=== PATIENT | female | born 1975 | race Two or more races ===

== ENCOUNTER 2019-02-22 05:36 | Day surgery (SDC) | payer OTHER ==
--- NOTE | 2019-02-18 19:43 | PREOPHP ---
DATE OF ADMISSION: 02/22/2019 The patient is having a surgical procedure on 02/22/2018. HISTORY OF PRESENT ILLNESS: This is a 43-year-old female, 2, para 1. The patient was referr ed to me by her clinic due to bilateral ovarian masses that apparently are bilateral ovarian endometr iomas. She also has a history of menometrorrhagia, intractable pelvic pain, anemia, and a fibroid ut erus. The patient had an ultrasound in the clinic where she comes from and it revealed that she has large bilateral complex ovarian masses. The patient has a history of having a pelviscopy 36 years ag o where she was diagnosed with endometriosis, and she has also a history of a D and C. The patient c omplains of having heavy periods, with history of menometrorrhagia for many months right now. She aguilar d been placed on control pills that did not work. The patient states her ovarian cysts are cely wing by the ultrasound results, and she is also with dysmenorrhea, dyspareunia and on no treatment at this moment since the pills do not agree with her. REVIEW OF SYSTEMS: The patient had no cardiovascular problems, no lung problems, no GI problems, no endocrine problems. ALLERGIES: SHE HAS NO ALLERGIES. SOCIAL HISTORY: No smoking and no drinking. No history of drugs. FAMILY HISTORY: Unremarkable. MEDICATIONS: At this moment, she is not taking any medication. Ultrasound had shown multiple fibroids and endometriomas. THE PATIENT IS NOT ALLERGIC TO ANY MEDICATION. PHYSICAL EXAMINATION: VITAL SIGNS: Stable. The patient weighs 124. She is 5 feet 3 inches, and the patient is afebrile. Pulse is 80, respirations 16, blood pressure 120/80. HEAD AND NECK: Normal. BREASTS: Soft, nontender. No masses. CHEST: Clear. HEART: Normal sinus rhythm. LUNGS: Clear. ABDOMEN: Soft, nontender. No masses. GENITALIA: With normal color and texture of the vagina. PELVIC: Cervix is healthy. Uterus felt to have large fibroids, and both adnexa are full. RECTAL: Negative. EXTREMITIES: Normal. DIAGNOSES: 1. Intractable menometrorrhagia. 2. Intractable pelvic pain. 3. Bilateral ovarian complex masses, possible endometriomas. 4. Fibroid uterus. 5. Anemia. PLAN: She is undergoing a pelviscopic bilateral ovarian cystectomy and a D and C. She has been advi sed of the possible risks and possible complications of the procedure with her alternatives and optio ns. Written information was provided. She had no more questions and agreed to go ahead with the pro cedure with full understanding and no more questions. Dictated By: MAKENNA PATTERSON/NTS Conf#: [id number] DID#: [id number]
[2019-02-22] VITALS (15 sets, daily range): BP systolic 113–152; BP diastolic 68–98; PULSE 66–88; RESP 16–25; Ht 160 cm; Wt 53.9 kg
[~2019-02-22] VITALS: Ht 160 cm; Wt 53.9 kg
[2019-02-22] MEDS ORDERED: CEFAZOLIN 2 GM/50 ML (PMX) 50 ML IVPB ONE (06:00)
[2019-02-22] MEDS ORDERED: NORG1TAB65 PO (06:50)
[2019-02-22] MEDS ORDERED: DESFLURANE 15 MIN ONE (07:00)
--- NOTE | 2019-02-22 07:21 | PREAC ---
Date/Time of Note Date/Time of Note DATE: 02/22/19 TIME: 07:18 Anesthesia Eval and Record Evaluation Time Pre-Procedure Interview DATE: 02/22/19 TIME: 07:18 Age 43 Sex female NPO: 8 hrs Preoperative diagnosis ovarian cysts b/l Planned procedure b/l ovarian cystectomy Past Medical History Past Medical History: Includes Heme: Anemia Surgery & Anesthesia Issues No known issue Meds Anticoagulation: No Beta Puja within 24 hr: No Reason Beta Puja not given: Pt. not on B-Puja Reported Medications Norgestimate-Ethinyl Estradiol (Norgestimate-Ethinyl Estradiol) 0.035-0.18 Mg Tablet, 1 TAB PO DAILY, TAB 02/22/19 Meds reviewed: Yes Allergies Coded Allergies: No Known Allergy (Unverified , 02/22/19) Allergies Reviewed: Yes Labs/Studies Labs Reviewed: Reviewed by anesthesiologist test: Negative Pre-procedure Exam Last vitals Vital Signs Date Temp Pulse Resp B/P (MAP) Pulse Ox O2 O2 Flow FiO2 Time Delivery Rate 02/22/19 98.8 88 18 152/75 98 Room Air 06:45 (100) Airway: Adequate mouth opening, Adequate thyromental dist Mallampati: Mallampati II Teeth: Normal Lung: Normal Heart: Normal ASA Physical Status ASA physical status: 2 Emergency: None Planned Anesthetic General/MAC: ETT Nerve block: TAP (bilateral) Pre-operative Attestations Prior to commencing anesthesia and surgery, the patient was re-evaluated, there was verification of: *The patient's identity *The results of appropriate recent lab work and preoperative vital signs *The above evaluation not changing prior to induction *Anesthetic plan, risk benefits, alternative and complications discussed with patient/family; questions answered; patient/family understands, accepts and wishes to proceed. JODI JEROME Feb 22, 2019 07:21
[2019-02-22] MEDS ORDERED: BUPIVACAINE 0.5%/EPI (SDV) 30 ML INJ ONE (07:23)
[2019-02-22] MEDS ORDERED: BUPIVACAINE 0.5%/EPI (SDV) 10 ML INJ ONE (07:23)
[2019-02-22] MEDS ORDERED: FENTAnyl 50 MCG/ML VIAL IV PRN ×3 (07:30)
[2019-02-22] MEDS ORDERED: LACTATED RINGER'S 1,000 ML IV SCH (07:30)
[2019-02-22] MEDS ORDERED: MEPERIDINE 25 MG INJ IV PRN (07:30)
[2019-02-22] MEDS ORDERED: HYDROmorphONE 1 MG/5 ML IV SYRINGE IV PRN ×3 (07:30)
[2019-02-22] MEDS ORDERED: DIPHENHYDRAMINE 50 MG INJ IV PRN (07:30)
[2019-02-22] MEDS ORDERED: ALBUTEROL 0.083% (NEB) 2.5 MG/3 ML AMP HHN PRN (07:30)
[2019-02-22] MEDS ORDERED: METOCLOPRAMIDE 10 MG INJ IV PRN (07:30)
[2019-02-22] MEDS ORDERED: ONDANSETRON 4 MG INJ IV PRN (07:30)
[2019-02-22] MEDS ORDERED: ROPIVACAINE 0.5 % 30 ML VIAL ONE (07:33)
[2019-02-22] MEDS ORDERED: FENTAnyl 50 MCG/ML VIAL ONE (07:33)
--- NOTE | 2019-02-22 07:37 | HPN ---
Date/Time of Note Date/Time of Note DATE: 02/22/19 TIME: 07:37 Interval H&P Admission Note Pt. seen H&P reviewed: No system changes MAKENNA CAZARES MD Feb 22, 2019 07:37
[2019-02-22] MEDS ORDERED: LIDOCAINE 100 MG SYRINGE ONE (08:57)
[2019-02-22] MEDS ORDERED: PROPOFOL 20 ML ONE (08:57)
[2019-02-22] MEDS ORDERED: ROCURONIUM 50 MG INJ ONE (08:57)
[2019-02-22] MEDS ORDERED: SUGAMMADEX SODIUM 200 MG/2 ML VIAL IV ONE (08:57)
[2019-02-22] MEDS ORDERED: SUCCINYLCHOLINE CHLORIDE 100 MG/5 ML SYG IV ONE (08:57)
[2019-02-22] MEDS ORDERED: CEFAZOLIN 1 GM INJ ONE (08:57)
--- NOTE | 2019-02-22 09:07 | PD.PPDC ---
SENIOR SHAREPOINT ARCHITECT Discharge Instruction Condition [id number] Patient Condition: [id number] Good Diet [id number] Diet: Respt4y Resume Regular Diet Activity/Restrictions [id number] Activity: Prgsk1o Normal Activity May Shower [id number] Restrictions: Cmzmg0g No Exercising No Lifting No Driving No Sexual Activity Nothing in the Vagina No Angostura No Tampons, douche Wound/Drain Care Instructions [id number] Wound/Drain Care [id number] Remove Steri Strips in 1 week Instructions: Wash with soap and water Keep clean and dry Follow-up Follow-up with Physician: 1, 2, Week/Weeks Return to clinic for Xvbus2Yn [employer] Instructions: Afepy3k Fever greater than 101 Chills Worsening abdominal pain Excessive Vaginal Bleeding More than 2 pads per hour Unable to tolerate diet [id number] Surgical Instructions: Hemnk2a Incisional Drainage Incisional Redness MAKENNA CAZARES MD Feb 22, 2019 09:07
--- NOTE | 2019-02-22 09:11 | SIPON ---
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
--- NOTE | 2019-02-22 09:54 | OPR ---
DATE OF OPERATION: 02/22/2019 PROCEDURE: Pelviscopy and fractional D and C. PREOPERATIVE DIAGNOSES: Intractable menometrorrhagia, intractable pelvic pain, bilateral complex mas ses, endometrioma, fibroid uterus, anemia. POSTOPERATIVE DIAGNOSES: Intractable menometrorrhagia, intractable pelvic pain, bilateral complex ma sses, endometrioma, fibroid uterus, anemia, severe adhesion, multiple fibroid uterus with large left endometrioma, frozen pelvis with extensive bowel adhesions, large endometriomas and multiple fibroid uterus. SURGEON: Makenna Norris MD. ANESTHESIOLOGIST: Linden Cox MD. COMPLICATIONS: None. DESCRIPTION OF PROCEDURE: The patient was given general anesthesia, placed in the lithotomy position . The perineal and vaginal area and abdomen were prepped and draped. An confirmatory examination un jerome anesthesia revealed that the uterus with large with multiple fibroids and with adnexal masses bárbara t were felt on both adnexal areas. The vaginal speculum was applied. The cervix was held and endoce rvical curettage was done, then the uterus was sounded to a depth of 12 cm and a HUMI was inserted in side the uterus for uterine manipulation. The pelviscopy was started by making a small incision over the inferior edge of the umbilicus. The fascia was opened and held with #0 Vicryl and the peritoneu m was opened and bluntly and the Moreno was inserted. The CO2 was inflated and the scope was inflate d as well with 10 mm scope. The second trocar and cannula was inserted suprapubically over the midli ne for manipulation with instrument. The cavity was assessed. The uterus was with multiple fibroids . The bowel had been seen in the back of the uterus with adhesions to the uterus. There was a large endometrioma on the left side that was adherent to bowel and uterus. The tube was on top of it and it appears to be okay. The right adnexa was not visualized due to the frozen pelvis and adhesion. A probe was inserted and it was impossible to look at the right adnexa due to the rigidity and the sev ere adhesions of the pelvis. The patient would need an exploratory laparotomy for a surgery to be able to have a myomectomy done and to clean up both endometriomas and lyse the adhesions. This w ill be informed to the patient afterwards. The procedure was finished by removing all the instrument s and the gas being inflated of the abdomen and both incisions were closed with #2-0 Monocryl and Keith ri-Strips applied to both incisions. The fractional D and C was done on the cervix, first doing an E CC and then an EMC, and this tissue was sent for histopathology. The procedure was finished. The pa tient tolerated the procedure well. The Armando catheter was removed. The patient left the OR awake a nd stable. Sponge counts and instrument counts were correct. Intravenous antibiotics were given for prophylaxis. Dictated By: MAKENNA PATTERSON/NTS Conf#: [id number] DID#: [id number]
--- NOTE | 2019-02-22 12:28 | PAC ---
Date/Time of Note Date/Time of Note DATE: 02/22/19 TIME: 12:28 Post-Anesthesia Notes Post-Anesthesia Note Last documented vital signs Vital Signs Date Temp Pulse Resp B/P (MAP) Pulse Ox O2 O2 Flow FiO2 Time Delivery Rate 02/22/19 68 21 122/98 98 Room Air 10:12 (106) 02/22/19 8.0 09:27 02/22/19 98.0 09:12 Activity: WNL Respiratory function: WNL Cardiovascular function: WNL Mental status: Baseline Pain reasonably controlled: Yes Hydration appropriate: Yes Nausea/Vomiting absent: Yes JODI JEROME Feb 22, 2019 12:28
== END 2019-02-22 11:30 | disposition home or self-care (01) ==
LOC: SDS 05:36 → INTOOBSV 05:36 → UNDOADMOB 05:36 → REC 05:36 → EDSTATUS 07:30 → SDS 11:30
PROVIDERS: ATTEND Obstetrics & Gynecology
DX: N92.1 Excessive and frequent menstruation with irregular cycle (principal); R10.2 Pelvic and perineal pain; N80.9 Endometriosis, unspecified; D25.9 Leiomyoma of uterus, unspecified; D64.9 Anemia, unspecified; N73.6 Female pelvic peritoneal adhesions (postinfective)
CPT/HCPCS: 58558; 86850; 86900; 86901; J0690; J2001; J2405; J2795; J3010; Z7512; Z7610; 88305